=== PATIENT | female | born 1945 | race Caucasian/White ===

== ENCOUNTER 2020-09-19 08:39 | Outpatient (CLI) | payer MEDICARE, SELFPAY ==
--- NOTE | ~2020-09-19 | XR_ITS ---
EXAMINATION: XR hip RT 2V w AP pelvis EXAM DATE: 09/19/2020 09:18 INDICATION: M25.551 - Pain in right hip -. No injury. TECHNIQUE: Right hip frontal, 'frog leg' projections for interpretation. Frontal projection pelvis. Comparison is made to prior examination from 02/03/2018. FINDINGS: There is moderate right hip, mild to moderate left hip primary osteoarthritis. No evidence of avascular necrosis. There is moderate lumbar levoscoliosis. There are no acute fractures or dislo cations identified. There is no subcutaneous gas. The soft tissue is unremarkable. There are no r adiopaque foreign bodies. IMPRESSION: Moderate right hip, mild to moderate left hip osteoarthritis. Moderate levoscoliosis. Reviewed, dictated and finalized at location B. EM ARCHITECT IMPRESSION: Moderate right hip, mild to moderate left hip osteoarthritis. Moder ate levoscoliosis.
[2020-09-19 09:06] LABS: Hematocrit 45.2 % (37.0-47.0); Hemoglobin 14.8 g/dL (12.0-15.0); Mean Corpuscular HGB Conc 32.7 g/dl (32-36); Mean Corpuscular Hemoglobin 30.3 pg (26-34); Mean Corpuscular Volume 92.4 fl (80-100); Mean Platelet Volume 9.7 fl (7.4-10.4); Platelet Count Result 221 k/mm3 (150-375); Red Blood Count 4.89 M/mm3 (4.2-5.4); Red Cell Distribution Width 12.9 % (11.5-14.5)
[2020-09-19 09:19] LABS: Anion Gap 7 mmol/L (8-16); Blood Urea Nitrogen 12 mg/dL (7-17); Calcium 9.8 mg/dL (8.4-10.2); Carbon Dioxide 29 mmol/L (22-30); Chloride 105 mmol/L (98-107); Estimated Glomerular Filt Rate > 60; Glucose 110 mg/dL (65-105); Potassium 4.2 mmol/L (3.4-5.0); Sodium 141 mmol/L (137-145)
== END 2020-09-19 08:40 | disposition home or self-care (01) ==
PROVIDERS: PCP Family Medicine; Visit Provider Physician Assistant Medical
DX: R01.1 Cardiac murmur, unspecified (principal); G89.29 Other chronic pain; M16.0 Bilateral primary osteoarthritis of hip; M41.9 Scoliosis, unspecified
CPT/HCPCS: 36415; 73502; 80048; 84443; 85027

== ENCOUNTER 2022-05-31 09:40 | Outpatient (CLI) | payer MEDICARE, SELFPAY ==
[2022-05-31 10:20] LABS: Basophils Percent Auto 0.5 % (0.2-1.2); Eosinophils Absolute Auto 0.2 K/mm3 (0-0.3); Eosinophils Percent Auto 2.5 % (0-4.4); Hemoglobin 15.2 g/dL (12.0-15.0); Immature Granulocyte Absolute 0.01 K/mm3 (0.00-0.031); Immature Granulocyte Percent A 0.2 % (0-0.5); Lymphocytes Absolute Auto 1.55 K/mm3 (0.9-3.2); Mean Corpuscular Hemoglobin 30.5 pg (26-34); Mean Corpuscular Volume 92.4 fl (80-100); Mean Platelet Volume 9.7 fl (7.4-10.4); Monocytes Absolute Auto 0.4 K/mm3 (0.1-0.6); Monocytes Percent Auto 6.2 % (2.6-8.5); Neutrophils Absolute Auto 3.9 K/mm3 (1.3-6.7); Neutrophils Percent Auto 64.6 % (45.5-73.1); Platelet Count Result 222 k/mm3 (150-375); Red Blood Count 4.98 M/mm3 (4.2-5.4); Red Cell Distribution Width 12.6 % (11.5-14.5)
[2022-05-31 10:25] LABS: Alanine Aminotransferase 11 U/L (6-35); Albumin Level 4.4 g/dL (3.5-5.1); Alkaline Phosphatase 96 U/L (38-126); Anion Gap 12 mmol/L (8-16); Aspartate Amino Transferase 22 U/L (14-36); Bilirubin,Total 0.7 mg/dL (0.2-1.3); Blood Urea Nitrogen 15 mg/dL (7-17); Carbon Dioxide 25 mmol/L (22-30); Chloride 104 mmol/L (98-107); Cholesterol 238 mg/dL (0-200); Estimated Glomerular Filt Rate > 60; Glucose 113 mg/dL (65-110); HDL Direct 44 mg/dL; Potassium 3.9 mmol/L (3.4-5.0); Sodium 141 mmol/L (137-145); Triglycerides 220 mg/dL (<150)
[2022-05-31 10:36] LABS: LDL Cholesterol Direct 147 mg/dL
== END 2022-05-31 09:41 | disposition home or self-care (01) ==
PROVIDERS: PCP Family Medicine; Visit Provider Physician Assistant Medical
DX: E78.5 Hyperlipidemia, unspecified (principal); E78.2 Mixed hyperlipidemia; I10 Essential (primary) hypertension
CPT/HCPCS: 36415; 80053; 80061; 84443; 85025

== ENCOUNTER 2022-06-04 15:54 | Emergency (ER) | payer MEDICARE, SELFPAY ==
--- NOTE | ~2022-06-04 | CT_ITS ---
EXAMINATION: CT abdomen pelvis w con DATE: 06/04/2022 17:42 INDICATION: Right flank pain TECHNIQUE: Computed tomography (CT) of the abdomen and pelvis was performed with 100 mL Omnipaque-350 intravenous contrast. Automated exposure control and iterative reconstruction technique were employe d. The dose-length product was 462.28 mGy-cm. COMPARISON: 05/24/2014. FINDINGS: Lower thorax: Senescent changes. Mitral and aortic valve calcification. Liver: Multiple liver cysts. Biliary/Gallbladder: Gallbladder is normal. No bile duct dilation. Pancreas: No mass or duct dilation. Spleen: Normal. Adrenals:No mass. Kidneys: Multiple left hypodensities, too small to characterize but most likely represent cysts. No s uspicious mass, stone or hydronephrosis GI tract: Distal esophageal and gastric wall edema. No small or large bowel dilation. Appendix is not visualized. Severe diverticulosis, without CT evidence of diverticulitis Mesentery/Peritoneum: No ascites, mass, or free air. Retroperitoneum: No mass. Atherosclerotic abdominal aortic and/or arterial calcifications. Pelvis: Mild bladder wall thickening. Soft Tissues: Soft tissues and body wall unremarkable. Bones: No acute osseous finding. IMPRESSION: Esophagitis/gastritis. No other acute abdominopelvic process detected. Reviewed, dictated and finalized at location K.
--- NOTE | ~2022-06-04 | CT_ITS ---
EXAMINATION: CT cervical spine wo con DATE: 06/04/2022 17:38 INDICATION: Nontraumatic pain TECHNIQUE: Computed tomography (CT) of the cervical spine was performed without intravenous contrast. Automated exposure control and iterative reconstruction technique were employed. The dose-length pro duct was 129.85 mGy-cm. COMPARISON: None FINDINGS: Vertebral Body Alignment: Stable Grade 1 anterolisthesis of C7 on T1. Craniocervical and atlantoaxial alignment: Moderate degenerative change. Alignment intact. Osseous structures/fracture: No evidence of a lytic or blastic process in the visualized spine. No e vidence of acute fracture. Cervical soft tissues: The paraspinal soft tissues planes are maintained. Degenerative changes: Multilevel severe degenerative disc disease. Multilevel facet arthropathy. Mult ilevel severe bilateral neural foraminal narrowing. No severe central canal narrowing. IMPRESSION: No acute fracture or traumatic malalignment in the cervical spine. Reviewed, dictated and finalized at location K.
--- NOTE | ~2022-06-04 | XR_ITS ---
EXAM: XR thoracic spine 3V DATE: 06/04/2022 17:51 HISTORY: Nontraumatic pain, GENERALIZED PAIN . COMPARISON: None available. FINDINGS: Vertebral body alignment intact. Thoracolumbar scoliosis. Exaggerated kyphosis. Mild anter ior wedge deformity of thoracolumbar junction at multiple levels, likely old/physiologic. Multilevel moderate degenerative disc disease. No traumatic malalignment or fracture. Visualized lung parenchyma is clear. IMPRESSION: No acute fracture or traumatic malalignment in the thoracic spine. Reviewed, dictated and finalized at location K.
--- NOTE | ~2022-06-04 | XR_ITS ---
EXAM: XR lumbar spine 2-3V DATE: 06/04/2022 17:51 HISTORY: Nontraumatic pain, RIGHT LOW BACK PAIN/RT SI . COMPARISON: 05/24/2014. FINDINGS: 5 nonrib-bearing lumbar-type vertebral bodies. Severe lumbar scoliosis Pedicles somewhat o bscured. Normal vertebral body alignment. Vertebral body heights preserved. Multilevel severe degener ative disc disease. Multilevel severe facet arthropathy. No fracture or dislocation. IMPRESSION: No acute osseous finding in the lumbar spine. Reviewed, dictated and finalized at location K.
[2022-06-04 15:56] VITALS: BP 197/99; PULSE 54; RESP 20; TEMP 36.8; O2SAT 99
--- NOTE | 2022-06-04 16:08 | ED.ABDPAIN ---
HPI - Abdominal Pain General Chief Complaint: Abdominal Pain Stated Complaint: right sie flank pain Time Seen by Provider: 06/04/22 16:07 Related Data Allergies Allergy/AdvReac Type Severity Reaction Status Date / Time lisinopril Allergy Unknown Cough Verified 06/04/22 15:59 losartan Allergy Unknown Dizziness Verified 06/04/22 15:59 nitrofurantoin Allergy Unknown Rash Verified 06/04/22 15:59 [facility] Past Medical History Medical History Abnormal vaginal bleeding BMI 24.0-24.9, adult BMI 25.0-25.9,adult Change in pigmented skin lesion of face Chronic right hip pain Elevated blood pressure reading Elevated fasting blood sugar History of vitamin D deficiency Other chronic pain Palpable mass of neck Serum sodium elevated Vitamin D deficiency Family History Family History Sibling Hypertension Family history of malignant neoplasm of esophagus Family history of heart disease in male family member before age 55 Mother Family history of elevated blood lipids Grandparent Cerebrovascular accident Father Family history of malignant neoplasm Other Family history of diabetes mellitus in first degree relative Social History Social History (Updated 05/28/22 @ 09:50 by Man Schaefer RN) Smoking status: Never smoker Second hand tobacco smoke exposure: No Alcohol intake: never Substance use: never Substance use type: does not use Exam Narrative: General appearance: Well-developed, well-nourished Skin: Normal color Head: Normocephalic, nontraumatic Eyes: Clear conjunctiva ENT: Oropharynx normal, ears normal, nose normal Neck: Supple, slight tenderness left side proximally, no bruises, no swelling, no mass, no lymph nodes, no rash Chest and respiratory: Airway patent, no respiratory distress, no accessory muscle use Heart: Regular rate/rhythm Abdomen: Soft, nontender, no organomegaly, quiet bowel sounds Vascular: Normal peripheral pulses, normal capillary refill. Musculoskeletal: Diffuse tenderness upper back bilaterally, lower back mainly right buttock, no bruises, no swelling, no rash Neurologic: Alert and oriented ?3, [employer] is normal as tested, no gross motor deficit, negative leg straight raising test bilaterally Course Course Emergency Course: Work-up, physical examination showed that the patient have gradual increase of her kyphosis and scoliosis which high likely the underlying cause of her upper back and lower back pain. She denied any recent trauma or recent new activities. Blood work-up and CT scan of the neck, x-ray of the thoracic and lumbar spine showed no significant abnormality to explain her condition. Musculoskeletal pain is my concern. Patient will be discharged on anti-inflammatory, antacid, and muscle relaxant to follow-up with her family physician within 5 to 7 days. Vital Signs Vital signs: Vital Signs Temperature 36.8 C 06/04/22 15:56 Pulse Rate 54 L 06/04/22 15:56 Respiratory Rate 20 06/04/22 15:56 Blood Pressure 197/99 H 06/04/22 15:56 Pulse Oximetry 99 06/04/22 15:56 Oxygen Delivery Room Air 06/04/22 15:56 Temperature 36.8 C 06/04/22 15:56 Pulse Rate 50 L 06/04/22 19:18 Respiratory Rate 22 H 06/04/22 19:18 Blood Pressure 170/77 H 06/04/22 19:18 Pulse Oximetry 99 06/04/22 19:18 Oxygen Delivery Room Air 06/04/22 15:56 MDM - Abdominal Pain Lab Data Result diagrams: 06/04/22 17:09 06/04/22 17:09 Labs: Lab Results 06/04/22 06/04/22 06/04/22 Range/Units 17:09 17:09 17:19 WBC 7.5 (4.5-10.0) K/mm3 RBC 4.79 (4.2-5.
[2022-06-04 16:33] VITALS: RESP 18; O2SAT 98
[2022-06-04 17:11] VITALS: BP 165/77; PULSE 48; RESP 16; O2SAT 99
[2022-06-04 17:17] LABS: Basophils Percent Auto 0.5 % (0.2-1.2); Eosinophils Absolute Auto 0.1 K/mm3 (0-0.3); Eosinophils Percent Auto 1.6 % (0-4.4); Hematocrit 44.5 % (37.0-47.0); Hemoglobin 14.6 g/dL (12.0-15.0); Immature Granulocyte Absolute 0.02 K/mm3 (0.00-0.031); Immature Granulocyte Percent A 0.3 % (0-0.5); Lymphocytes Absolute Auto 1.66 K/mm3 (0.9-3.2); Mean Corpuscular HGB Conc 32.8 g/dl (32-36); Mean Corpuscular Hemoglobin 30.5 pg (26-34); Mean Corpuscular Volume 92.9 fl (80-100); Mean Platelet Volume 9.5 fl (7.4-10.4); Monocytes Absolute Auto 0.6 K/mm3 (0.1-0.6); Monocytes Percent Auto 8.4 % (2.6-8.5); Neutrophils Absolute Auto 5.1 K/mm3 (1.3-6.7); Neutrophils Percent Auto 67.2 % (45.5-73.1); Platelet Count Result 226 k/mm3 (150-375); Red Blood Count 4.79 M/mm3 (4.2-5.4); Red Cell Distribution Width 12.8 % (11.5-14.5); White Blood Count 7.5 K/mm3 (4.5-10.0)
[2022-06-04 17:24] LABS: Appearance Urine Slightly Cloudy (Clear); Bilirubin Urine Negative (Negative); Blood Urine Negative (Negative); Color Urine Yellow (Yellow); Glucose Urine UA Negative (Negative); Ketones Urine Negative (Negative); Leukocyte Esterase Ur Negative LEU/UL (Negative); Nitrate Urine Negative (Negative); Protein Urine Negative (Negative); Urobilinogen Urine 0.2 mg/dL (<2.0); pH Urine 6.5 (5.0-9.0)
[2022-06-04 17:27] LABS: Alanine Aminotransferase 13 U/L (6-35); Albumin Level 4.5 g/dL (3.5-5.1); Alkaline Phosphatase 94 U/L (38-126); Anion Gap 9 mmol/L (8-16); Aspartate Amino Transferase 22 U/L (14-36); Bilirubin,Total 0.7 mg/dL (0.2-1.3); Blood Urea Nitrogen 12 mg/dL (7-17); Calcium 10.3 mg/dL (8.4-10.2); Carbon Dioxide 26 mmol/L (22-30); Chloride 103 mmol/L (98-107); Estimated CRCL calculation 56 ml/min; Estimated Glomerular Filt Rate > 60; Glucose 95 mg/dL (65-110); Potassium 3.8 mmol/L (3.4-5.0); Sodium 138 mmol/L (137-145)
[2022-06-04 17:34] LABS: Add Urine Microscopic? YES; RBC Urine 0-2 /hpf (0-2); WBC Urine 0-3 /hpf (0-3)
[2022-06-04 17:35] LABS: Bacteria Urine Trace /hpf; Squamous Epithelial Cell Urine Few /hpf (Few)
[2022-06-04 19:18] VITALS: BP 170/77; PULSE 50; RESP 22; O2SAT 99
--- NOTE | 2022-06-04 19:18 | PC.NURSE ---
Assumed care of pt at this time. Pt alert and upright on stretcher, pt and family updated on POC>
== END 2022-06-04 20:03 | disposition home or self-care (01) ==
PROVIDERS: Emergency Provider Emergency Medicine; PCP Family Medicine
DX: M54.2 Cervicalgia (principal); M41.9 Scoliosis, unspecified; M40.209 Unspecified kyphosis, site unspecified; K29.70 Gastritis, unspecified, without bleeding; K20.90 Esophagitis, unspecified without bleeding
CPT/HCPCS: 36415; 72072; 72100; 72125; 74177; 80053; 81001; 85025; 99283; 99284; Q9967

== ENCOUNTER 2022-06-28 14:49 | Outpatient (CLI) | payer MEDICARE, SELFPAY ==
--- NOTE | ~2022-06-28 | US_ITS ---
US soft tissue head and neck 06/28/2022 15:20 Indication: Neck pain. Procedure: High-resolution ultrasound of the left neck in the area of pain Comparison: No prior studies for comparison. Findings: There is normal heterogeneous soft tissues without focal solid or cystic mass. Normal vascu larity. Impression: 1: Normal limited soft tissue ultrasound of the left neck. No discrete mass. Reviewed, dictated and finalized at location B. Impression: 1: Normal limited soft tissue ultrasound of the left neck. No discrete mass.
== END 2022-06-28 14:50 | disposition home or self-care (01) ==
PROVIDERS: PCP Family Medicine; Visit Provider Nurse Practitioner Family
DX: R09.89 Other specified symptoms and signs involving the circulatory and respiratory systems (principal); R22.1 Localized swelling, mass and lump, neck
CPT/HCPCS: 76536

== ENCOUNTER 2024-01-14 10:11 | Outpatient (CLI) | payer MEDICARE, SELFPAY ==
[2024-01-14 10:34] LABS: Basophils Absolute Auto 0.1 K/mm3 (0.0-0.1); Basophils Percent Auto 0.8 % (0.2-1.2); Eosinophils Absolute Auto 0.2 K/mm3 (0-0.3); Eosinophils Percent Auto 3.1 % (0-4.4); Hematocrit 45.6 % (37.0-47.0); Hemoglobin 14.7 g/dL (12.0-15.0); Immature Granulocyte Absolute 0.02 K/mm3 (0.00-0.031); Immature Granulocyte Percent A 0.3 % (0-0.5); Lymphocytes Absolute Auto 1.45 K/mm3 (0.9-3.2); Lymphocytes Percent Auto 24.6 % (18.3-44.2); Mean Corpuscular HGB Conc 32.2 g/dl (32-36); Mean Corpuscular Hemoglobin 30.2 pg (26-34); Mean Corpuscular Volume 93.6 fl (80-100); Mean Platelet Volume 9.8 fl (7.4-10.4); Monocytes Absolute Auto 0.4 K/mm3 (0.1-0.6); Monocytes Percent Auto 7.3 % (2.6-8.5); Neutrophils Absolute Auto 3.8 K/mm3 (1.3-6.7); Neutrophils Percent Auto 63.9 % (45.5-73.1); Platelet Count Result 238 k/mm3 (150-375); Red Blood Count 4.87 M/mm3 (4.2-5.4); Red Cell Distribution Width 13.1 % (11.5-14.5); White Blood Count 5.9 K/mm3 (4.5-10.0)
[2024-01-14 10:55] LABS: Alanine Aminotransferase 17 U/L (6-35); Albumin Level 4.6 g/dL (3.5-5.1); Alkaline Phosphatase 96 U/L (38-126); Anion Gap 9 mmol/L (4-12); Aspartate Amino Transferase 25 U/L (14-36); Bilirubin,Total 0.8 mg/dL (0.2-1.3); Blood Urea Nitrogen 11 mg/dL (7-17); Calcium 10.1 mg/dL (8.4-10.2); Carbon Dioxide 23 mmol/L (22-30); Chloride 109 mmol/L (98-107); Cholesterol 252 mg/dL (0-200); Estimated Glomerular Filt Rate > 60; Glucose 111 mg/dL (65-110); HDL Direct 45 mg/dL; Potassium 4.1 mmol/L (3.4-5.0); Sodium 141 mmol/L (137-145); Triglycerides 147 mg/dL (<150)
[2024-01-14 11:05] LABS: LDL Cholesterol Direct 166 mg/dL
[2024-01-14 11:21] LABS: Appearance Urine Clear (Clear); Bacteria Urine None Seen /hpf; Bilirubin Urine Negative (Negative); Blood Urine Negative (Negative); Color Urine Yellow (Yellow); Glucose Urine UA Negative (Negative); Ketones Urine Trace mg/dL (Negative); Leukocyte Esterase Ur Trace LEU/UL (Negative); Need Manual Microscopic Reviewed; Nitrate Urine Negative (Negative); Non Pathogenic Casts 0-2; Protein Urine Negative (Negative); RBC Urine 0-2 /hpf (0-2); Specific Grav Ur 1.021 (1.001-1.035); Squamous Epithelial Cell Urine None Seen /hpf (Few); Urobilinogen Urine 0.2 mg/dL (<2.0); WBC Urine 0-5 /hpf (0-3); pH Urine 5.5 (5.0-9.0)
[2024-01-14 11:24] LABS: Add Urine Microscopic? YES
== END 2024-01-14 10:12 | disposition home or self-care (01) ==
LOC: ANHLAB 10:12
PROVIDERS: PCP Family Medicine; Visit Provider Physician Assistant Medical
DX: E78.2 Mixed hyperlipidemia (principal); I10 Essential (primary) hypertension; R41.3 Other amnesia; E78.5 Hyperlipidemia, unspecified
CPT/HCPCS: 36415; 80053; 80061; 81001; 84443; 85025